=== PATIENT | male | born 1980 | race African-American/Black ===

== ENCOUNTER 2023-08-24 15:01 | Emergency (ER) | payer BC ==
[2023-08-24] MEDS: Sodium Chloride 0.9% 1,000 ML IV ONE (16:41)
[2023-08-24] MEDS: Metoclopramide 10 MG/2 ML SDV IVPUSH ONE (16:42)
[2023-08-24] MEDS: Acetaminophen 325 MG Tab PO ONE (16:42)
[2023-08-24 17:04] LABS: BASOPHILS PERCENT AUTO 0.4 % (0.0-1.0); EOSINOPHILS ABSOLUTE AUTO 0.2 K/mm3 (0.0-0.4); EOSINOPHILS PERCENT AUTO 2.1 % (0.0-6.0); HEMATOCRIT 47.1 % (42.0-52.0); HEMOGLOBIN 15.6 gm/dl (14.0-18.0); IMMATURE GRAN ABSOLUTE AUTO 0.03 K/mm3 (0.00-0.05); IMMATURE GRAN PERCENT AUTO 0.4 % (0.0-0.4); LYMPHOCYTES ABSOLUTE AUTO 1.4 K/mm3 (1.0-4.8); LYMPHOCYTES PERCENT AUTO 20.1 % (24.0-44.0); MEAN CORPUSCULAR HGB CONC 33.1 g/dl (32.0-36.0); MEAN CORPUSCULAR VOLUME 87.5 fl (83.0-99.0); MEAN PLATELET VOLUME 9.1 fl (9.4-12.4); MONOCYTES ABSOLUTE AUTO 0.6 K/mm3 (0.0-0.8); MONOCYTES PERCENT AUTO 8.2 % (0.0-8.0); NEUTROPHILS ABSOLUTE AUTO 4.9 K/mm3 (1.8-7.7); NEUTROPHILS PERCENT AUTO 68.8 % (41.0-71.0); PLATELET COUNT,PLT 228 K/mm3 (150-400); RED BLOOD CELL COUNT 5.38 M/mm3 (4.52-5.90); WHITE BLOOD CELL COUNT,WBC 7.07 K/mm3 (3.9-11.3)
[2023-08-24 17:06] LABS: A/G RATIO 1.2 (1-2); BILIRUBIN TOTAL 0.7 mg/dL (0.2-1.0); CALCIUM 8.8 mg/dL (8.5-10.1); EST CRCL DRUG DOSING (CG) 105.42 mL/min; PROTEIN TOTAL,TP 7.4 g/dl (6.4-8.2)
== END 2023-08-24 17:35 | disposition home or self-care (01) ==
LOC: JD.ED 15:01
DX: R51.9 Headache, unspecified (principal)
CPT/HCPCS: 36415; 70450; 80053; 85025; 96360; 99284; J7030